=== PATIENT | male | born 2000 | race Two or more races ===

== ENCOUNTER 2023-05-07 14:34 | Emergency (ER) | payer SELFPAY ==
[2023-05-07] MEDS ORDERED: HYDROmorphone 1 MG/ML CARPUJECT IVP STA (15:06)
--- NOTE | 2023-05-07 15:07 | ED Physician Documentation ---
PD HPI ABD PAIN - Stated complaint Stated Complaint: LOWER ABD PX, TENDER - Chief complaint Chief Complaint: Abd Pain - History obtained from History obtained from: Patient - Additional information Additional information: 22-year-old gentleman is postop day 9 from a laparoscopic appendectomy done in [facility]. He was feeling well for the first few days, but over the last couple of days has developed stabbing upper abdominal pain radiating down that is quite severe. It is not associated with fever. He does find himself burping a lot. Nurse elicited history consistent with constipation, but denies that to me, no other history of abdominal surgeries. No fevers. PD PAST MEDICAL HISTORY - Present Medications Home Medications: Ambulatory Orders Medication Instructions Recorded Confirmed HYDROcod/ACETAM 5/325 [[place] 5/325] 1 - 2 tab PO Q6H PRN #10 tablet 05/07/23 polyethylene glycoL 3350(BULK) 17 gm PO DAILY PRN #1 each 05/07/23 [Miralax] - Allergies Allergies/Adverse Reactions: Allergies Allergy/AdvReac Type Severity Reaction Status Date / Time No Known Drug Allergies Allergy Verified 05/07/23 14:57 PD ED PE NORMAL - Vitals Vital signs reviewed: Yes - General General: Alert and oriented X 3, No acute distress - Abdomen Abdomen: Normal bowel sounds, Soft, Other (Right upper greater than right lower quadrant tenderness, mild left-sided tenderness, normal bowel sounds. 3 small laparoscopic incisions healing well. No surgical signs.) - Neuro Neuro: Alert and oriented X 3, Normal speech Results - Vitals Vitals: Vital Signs - 24 hr 05/07/23 05/07/23 05/07/23 14:50 15:00 16:51 Temperature 36.7 C Heart Rate 76 49 L 47 L Respiratory 18 16 16 Rate Blood Pressure 118/68 112/66 108/63 O2 Saturation 100 100 98 Oxygen O2 Source Room air - Labs Labs: Laboratory Tests 05/07/23 05/07/23 05/07/23 15:38 15:38 15:38 WBC 10.8 RBC 5.30 Hgb 15.2 Hct 45.5 MCV 85.8 MCH 28.7 MCHC 33.4 RDW 12.5 Plt Count 303 MPV 9.5 Neut # (Auto) 7.3 H Lymph # (Auto) 2.5 Parmer # (Auto) 0.7 Eos # (Auto) 0.2 Baso # (Auto) 0.0 Absolute Nucleated RBC 0.00 Nucleated RBC % 0.0 Sodium 140 Potassium 4.1 Chloride 104 Carbon Dioxide 28 Anion Gap 8.0 BUN 18 Creatinine 0.9 Estimated GFR (MDRD) 107 Glucose 88 Calcium 9.4 Total Bilirubin 0.7 AST 15 ALT 11 Alkaline Phosphatase 43 Total Protein 7.8 Albumin 4.4 Globulin 3.4 Albumin/Globulin Ratio 1.3 Lipase 42 Urine Color YELLOW Urine Clarity CLEAR Urine pH 6.0 Ur Specific [place] 1.020 Urine Protein NEGATIVE Urine Glucose (UA) NEGATIVE Urine Ketones NEGATIVE Urine Occult Blood NEGATIVE Urine Nitrite NEGATIVE Urine Bilirubin NEGATIVE Urine Urobilinogen 0.2 (NORMAL) Ur Leukocyte Esterase NEGATIVE Ur Microscopic Review NOT INDICATED Urine Culture Comments NOT INDICATED PD Medical Decision Making - ED course ED course: 22-year-old gentleman with upper and diffuse abdominal pain 9 days after a laparoscopic appendectomy. He appears well with probably appropriate tenderness for healing. CT and labs showing mild pelvic ascites which is probably appropriate at this stage, no other acute findings. He had a modest stool load on CT, not overwhelming. We will have him do a liquid diet and a single dose of laxatives with close return precautions. Departure - Departure Disposition: 01 Home, Self Care Clinical Impression: Postoperative pain Condition: Good Record reviewed to determine appropriate education?: Yes Instructions: ED Abdominal Pain Unkn Cause Male Prescriptions: polyethylene glycoL 3350(BULK) [Miralax] 17 gm PO DAILY PRN #1 each PRN Reason: Constipation HYDROcod/ACETAM 5/325 [[place] 5/325] 1 - 2 tab PO Q6H PRN #10 tablet PRN Reason: Pain Comments: I sent your prescription electronically to the [facility] in [place]. Return in 24 hours if not better, sooner if new or worsening symptoms develop. Recommend a liquid diet for the next 24 hours and single dose of the laxative which is also prescribed.
[2023-05-07 15:44] LABS: BILIRUBIN,URINE NEGATIVE (NEGATIVE); GLUCOSE, URINE (UA) NEGATIVE (NEGATIVE); KETONES,URINE (UA) NEGATIVE (NEGATIVE); LEUKOCYTE ESTERASE, URINE NEGATIVE (NEGATIVE); NITRITE,URINE NEGATIVE (NEGATIVE); OCCULT BLOOD,URINE NEGATIVE (NEGATIVE); PROTEIN,URINE NEGATIVE (NEGATIVE); UROBILINOGEN,URINE 0.2 (NORMAL) E.U./dL (NORMAL)
[2023-05-07 15:46] LABS: CLARITY,URINE CLEAR (CLEAR)
[2023-05-07 15:48] LABS: BASOPHILS % (AUTO) 0.4 %; EOSINOPHILS # (AUTO) 0.2 10^3/uL (0.0-0.7); EOSINOPHILS % (AUTO) 1.6 %; HCT - HEMATOCRIT 45.5 % (42.0-52.0); HGB - HEMOGLOBIN 15.2 g/dL (14.0-18.0); LYMPHOCYTES # (AUTO) 2.5 10^3/uL (1.5-3.5); LYMPHOCYTES % (AUTO) 23.1 %; MEAN CORPUSCULAR HEMOGLOBIN 28.7 pg (27.0-31.0); MEAN CORPUSCULAR HGB CONC 33.4 g/dL (32.0-36.0); MEAN CORPUSCULAR VOLUME 85.8 fL (80.0-94.0); MEAN PLATELET VOLUME 9.5 fL (7.4-11.4); MONOCYTES # (AUTO) 0.7 10^3/uL (0.0-1.0); MONOCYTES % (AUTO) 6.8 %; NEUTROPHILS # (AUTO) 7.3 10^3/uL (1.5-6.6); NEUTROPHILS % (AUTO) 67.8 %; PLT - PLATELET COUNT 303 10^3/uL (130-450); RED CELL DISTRIBUTION WIDTH 12.5 % (12.0-15.0); WHITE BLOOD COUNT 10.8 x10^3/uL (4.8-10.8)
[2023-05-07] MEDS ORDERED: iohexoL-300 100 ML VIAL ONE (16:03)
[2023-05-07 16:04] LABS: ALBUMIN 4.4 g/dL (3.2-5.5); ALBUMIN/GLOBULIN RATIO 1.3 (1.0-2.2); BILIRUBIN,TOTAL 0.7 mg/dL (0.2-1.0); CALCIUM 9.4 mg/dL (8.5-10.3); CREATININE 0.9 mg/dL (0.6-1.2); POTASSIUM 4.1 mmol/L (3.5-5.0); TOTAL PROTEIN 7.8 g/dL (6.7-8.2)
[2023-05-07 16:57] VITALS: BP 108/63
--- NOTE | 2023-05-07 17:25 | CT Report ---
PROCEDURE: ABDOMEN/PELVIS W INDICATIONS: iv only, post op abd pain CONTRAST: 100ml omni 300 TECHNIQUE: After the administration of intravenous contrast, 5 mm thick sections acquired from the diaphragms to the symphysis. 5 mm thick coronal and sagittal reformats were acquired. For radiation dose reducti on, the following was used: automated exposure control, adjustment of mA and/or kV according to dov ent size. COMPARISON: None FINDINGS: Image quality: Excellent. Lung bases and heart: Unremarkable. Liver: No solid mass. Gallbladder and biliary tree: No radiopaque stones or wall thickening. No biliary dilation. Spleen: No splenomegaly. Pancreas: No pancreatic ductal dilation. Adrenals: No adrenal nodule. Kidneys and ureters: No hydronephrosis. No renal cystic lesion which requires follow up. No solid mas s. Bowel and peritoneum: No bowel distension. . Mild free fluid in the pelvis. Lymph nodes: No central or retroperitoneal adenopathy. Vessels: No infrarenal aortic aneurysm. PELVIS Reproductive organs: Unremarkable. Bladder: No abnormal wall thickening, accounting for underdistension. Pelvic lymph nodes: No pelvic adenopathy by size criteria. Bones: No aggressive osseous abnormality. Other: No significant ventral or inguinal hernia. IMPRESSION: Very mild pelvic ascites. Otherwise unremarkable study. No abscess cavity. No free air. Reviewed by: Griffin Keen MD on 05/07/2023 5:24 PM PDT Approved by: Griffin Keen MD on 05/07/2023 5:24 PM PDT Station ID: [id number]
[2023-05-07] MEDS ORDERED: iohexoL-300 100 ML VIAL IVP ONE (19:08)
== END 2023-05-07 17:57 | disposition home or self-care (01) ==
LOC: ED 14:34
DX: G89.18 Other acute postprocedural pain (principal)
CPT/HCPCS: 36415; 74177; 80053; 81003; 83690; 85025; 96374; 99283; 99284; J1170; Q9967; 81001; 87086